=== PATIENT | female | born 1950 | race American Indian/Alaskan Native ===

== ENCOUNTER 2020-02-10 10:45 | Outpatient (CLI) | payer MEDICARE ==
--- NOTE | 2020-02-10 11:49 | Mammography Report ---
DIGITAL SCREENING MAMMOGRAM WITH CAD, 02/10/2020 CLINICAL INFORMATION / INDICATION: Routine screening mammography. TECHNIQUE: Digital bilateral 2D mammography was obtained in the craniocaudal and mediolateral obliqu e projections. This examination was interpreted with the benefit of Computer-Aided Detection analysis . COMPARISON: 01/26/2017, 02/05/2019 FINDINGS: Breast Density: There are scattered areas of fibroglandular density. No dominant mass, suspicious calcifications, or architectural distortion in either breast. Postsurgical scar right breast. Biopsy clips are present bilaterally. Multiple bilateral nodules are stable or decreased in appearance. Overall, no significant interval change. IMPRESSION: No mammographic evidence of malignancy. Follow up recommendation: Routine yearly BI-RADS Category 2: Benign. A "normal" or negative report should not discourage follow up or biopsy of a clinically significant f inding. A written summary of these findings will be mailed to the patient. The patient will be entered into a mammography reporting system which will generate a reminder letter for the patient's next appointmen t at the appropriate interval. The [employer] recommends yearly mammograms starting at age 40 and continuing as l peg as a woman is in good health. Breast MRI is recommended for women with an approximate 20-25% or greater lifetime risk of breast cancer, including women with a strong family history of breast or ova judy cancer or who have been treated for Hodgkin's disease. Signer Name: Marry Nascimento MD Signed: 02/10/2020 11:44 AM Workstation Name: [id number]
== END 2020-02-10 10:46 | disposition home or self-care (01) ==
LOC: SPVWC 10:45
PROVIDERS: ATTEND Surgery
DX: Z12.31 Encounter for screening mammogram for malignant neoplasm of breast (principal)
CPT/HCPCS: 77067

== ENCOUNTER 2021-02-10 10:37 | Outpatient (CLI) | payer MEDICARE | END 2021-02-10 10:38 | disposition home or self-care (01) | LOC: SPVWC 10:37 | DX: Z12.31 Encounter for screening mammogram for malignant neoplasm of breast (principal) | CPT/HCPCS: 77067 ==